=== PATIENT | male | born 2000 | race Caucasian/White ===

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

== ENCOUNTER 2024-04-21 18:11 | Emergency (ER) | payer OTHER ==
[~2024-04-21] VITALS: Ht 182.9 cm; Wt 98.0 kg
[2024-04-21 18:34] VITALS: O2SAT 99
[2024-04-21 19:00] VITALS: BP 117/69; TEMP 98.4; O2SAT 99
[2024-04-21] MEDS ORDERED: CIPR7.5D9 LEFT EAR (19:11)
== END 2024-04-21 19:19 | disposition home or self-care (01) ==
LOC: ER 18:20
DX: H60.92 Unspecified otitis externa, left ear (principal)

== ENCOUNTER 2025-05-24 16:50 | Emergency (ER) | payer OTHER ==
[~2025-05-24] VITALS: Ht 172.7 cm; Wt 86.2 kg
[~2025-05-24 16:50] MED LIST: CIPR7.5D9 LEFT EAR
[2025-05-24 16:56] VITALS: TEMP 98.7
[2025-05-24] MEDS ORDERED: FAMOTIDINE (20 MG) 20 MG TABLET ONE (18:18)
[2025-05-24] MEDS: FAMOTIDINE (20 MG) 20 MG TABLET PO ONE (18:47)
[2025-05-24] MEDS: DIPHENHYDRAMINE HCL 12.5 MG/5 ML UDC PO ONE (18:47)
[2025-05-24 18:48] VITALS: BP 113/83; O2SAT 97
[2025-05-24] MEDS ORDERED: PRED50TA PO (18:53)
== END 2025-05-24 19:48 | disposition home or self-care (01) ==
LOC: ER 16:58
DX: L29.9 Pruritus, unspecified (principal)
CPT/HCPCS: 99283; Q0163 ×2; J7512